=== PATIENT | female | born 2000 | race Two or more races ===

== ENCOUNTER 2023-01-14 11:07 | Emergency (ER) | payer OTHER ==
[~2023-01-14] VITALS: Ht 149.9 cm; Wt 75.9 kg
[2023-01-14] MEDS ORDERED: KETOROLAC TROMETHAMINE 30 MG/ML VIAL IVP ONE (12:15)
[2023-01-14] MEDS ORDERED: HYDROmorphone HCL 2 MG/ML SYRINGE IVP ONE (12:15)
[2023-01-14] MEDS ORDERED: ONDANSETRON HCL 4 MG/2 ML VIAL IVP ONE (12:15)
[2023-01-14 12:18] VITALS: TEMP 97.5
[2023-01-14 12:48] LABS: BASOPHILS % (AUTO) 0.3 % (0.0-2.0); EOSINOPHILS % (AUTO) 0.9 % (1.0-6.0); HEMATOCRIT 38.9 % (36-46); HEMOGLOBIN 12.8 g/dL (12.0-16.0); LYMPHOCYTES # (AUTO) 0.8 K/uL (1.0-4.8); LYMPHOCYTES % (AUTO) 7.7 % (22.0-44.0); MEAN CORPUSCULAR HEMOGLOBIN 30.8 pg (26.0-34.0); MEAN CORPUSCULAR VOLUME 93 fL (80-100); MONOCYTES # (AUTO) 0.6 K/uL (0.1-1.0); MONOCYTES % (AUTO) 5.6 % (2.0-9.0); NEUTROPHILS # (AUTO) 8.5 K/uL (1.8-7.7); PLATELET COUNT (AUTO) 359 K/uL (150-450); RED BLOOD CELL COUNT(AUTO) 4.17 MIL/uL (4.00-5.20); RED CELL DISTRIBUTION WIDTH 14.3 % (11.5-14.5); WHITE BLOOD COUNT (AUTO) 9.9 K/uL (4.5-11.0)
[2023-01-14 12:53] LABS: NEUTROPHILS % (AUTO) 85.5 % (40.0-70.0)
[2023-01-14 13:02] LABS: ANION GAP 9 mmol/L (8-16); CALCIUM, TOTAL 9.4 mg/dL (8.8-10.5); CARBON DIOXIDE 27 mmol/L (22-29); CHLORIDE 102 mmol/L (98-107); CREATININE 0.67 mg/dL (0.60-1.30); GLOMERULAR FILTR. RATE CALC > 60 mL/min (>60); GLUCOSE,RANDOM 90 mg/dL (70-110); POTASSIUM 3.9 mmol/L (3.5-5.1); SODIUM SERUM 138 mmol/L (136-145); UREA NITROGEN, BLOOD 14 mg/dL (7-18)
[2023-01-14 13:44] VITALS: BP 110/58; PULSE 74; RESP 16
== END 2023-01-14 15:32 | disposition home or self-care (01) ==
LOC: EMS 11:08
DX: S83.92XA Sprain of unspecified site of left knee, initial encounter (principal); W18.30XA Fall on same level, unspecified, initial encounter; Y93.89 Activity, other specified; Y92.89 Other specified places as the place of occurrence of the external cause; Y99.8 Other external cause status
CPT/HCPCS: 99284; 96374; 29505; 96375; 80048; 84703; 85025; 36415; 73562; J1170; J1885; J2405

== ENCOUNTER 2024-04-30 10:31 | Emergency (ER) | payer OTHER ==
[~2024-04-30] VITALS: Ht 149.9 cm; Wt 75.0 kg
[2024-04-30 10:40] VITALS: BP 129/94; PULSE 85; RESP 18; TEMP 97.7; O2SAT 99
[2024-04-30 10:59] LABS: APPEARANCE,URINE HAZY (CLEAR); BILIRUBIN,URINE NEGATIVE (NEGATIVE); COLOR,URINE LIGHT YELLOW (YELLOW); GLUCOSE, URINE (UA) NEGATIVE (NEGATIVE); KETONES,URINE NEGATIVE (NEGATIVE); LEUKOCYTE ESTERASE ,URINE LARGE (NEGATIVE); NITRATE,URINE NEGATIVE (NEGATIVE); OCCULT BLOOD,URINE LARGE (NEGATIVE); PH,URINE 6.5 (5.0-8.0); PROTEIN,URINE 30-70 mg/dL (NEGATIVE); SPECIFIC GRAVITIY, URINE 1.005 (1.003-1.030); UROBILINOGEN,URINE <=1.0 mg/dL (<=1.0)
[2024-04-30 11:04] LABS: HCG,QUAL URINE NEGATIVE (NEGATIVE)
[2024-04-30 11:15] LABS: BACTERIA,URINE Few /HPF (None Seen); SQUAMOUS EPITHELIAL CELL,UR Few /LPF (None Seen); WBC,URINE 26-50 /HPF (0-5)
[2024-04-30] MEDS: CefTRIAXone SODIUM 1 GM/VIAL IM ONE (12:18)
[2024-04-30] MEDS: LIDOCAINE/PF 1% 2 ML VIAL IM ONE (12:18)
[2024-04-30] MEDS ORDERED: CEPH-558 PO (13:46)
== END 2024-04-30 14:04 | disposition home or self-care (01) ==
LOC: EMS 10:33
DX: N39.0 Urinary tract infection, site not specified (principal); F12.90 Cannabis use, unspecified, uncomplicated
CPT/HCPCS: 99283; 81001; 84703; 87086; 96372; J0696; J3490